=== PATIENT | male | born 1995 | race African-American/Black ===

== ENCOUNTER 2017-03-11 12:22 | Emergency (ER) | payer OTHER ==
[~2017-03-11] VITALS: Ht 185.4 cm; Wt 100.0 kg
[2017-03-11] MEDS ORDERED: cefTRIAXone SOD 1 GM VIAL (J0696) IM ONE (13:30)
[2017-03-11] MEDS ORDERED: AZITHROMYCIN 250 MG TAB PO ONE (13:30)
[2017-03-11] MEDS ORDERED: LIDOCAINE 1% MDV 20ML VIAL As Ordered ONE (13:33)
[2017-03-11 14:06] VITALS: BP 144/94
== END 2017-03-11 14:07 | disposition home or self-care (01) ==
LOC: M ED 12:22
DX: Z20.2 Contact with and (suspected) exposure to infections with a predominantly sexual mode of transmission (principal); N34.1 Nonspecific urethritis; F17.200 Nicotine dependence, unspecified, uncomplicated
CPT/HCPCS: 81001; 87491; 87591; 96372; 99283; J0696

== ENCOUNTER 2017-04-11 16:52 | Emergency (ER) | payer OTHER ==
[~2017-04-11] VITALS: Ht 185.4 cm; Wt 100.9 kg
[2017-04-11] MEDS ORDERED: cefTRIAXone SOD 250 MG VIAL (J0696) IM ONE (19:00)
[2017-04-11] MEDS ORDERED: AZITHROMYCIN 250 MG TAB PO ONE (19:00)
[2017-04-11 19:23] VITALS: BP 166/88
[2017-04-11] MEDS ORDERED: LIDOCAINE 1% MDV 20ML VIAL As Ordered ONE (19:24)
== END 2017-04-11 20:00 | disposition home or self-care (01) ==
LOC: M ED 16:52
DX: N28.89 Other specified disorders of kidney and ureter (principal); Z86.19 Personal history of other infectious and parasitic diseases
CPT/HCPCS: 87110; 96372; 99283; J0696